=== PATIENT | female | born 1935 | race Caucasian/White ===

== ENCOUNTER 2016-11-12 12:28 | Inpatient (IN) ==
[2016-11-12] MEDS ORDERED: ONDANSETRON 4 MG/2 ML VIAL IV PRN (14:47)
[2016-11-12] MEDS ORDERED: SODIUM CHLORIDE 0.9% 1,000 ML IV SCH (15:00)
[2016-11-12 15:23] LABS: Basophils % 0.1 % (0.0-0.8); Eosinophils # 0.1 10*3/uL (0.0-0.87); Eosinophils % 0.7 % (0.00-10.9); Hematocrit 42.1 VOL% (35.7-47.0); Hemoglobin 13.9 GM/DL (12.0-16.0); Immature Granulocytes % 1.3 %; Lymphocytes # 0.9 10*3/uL (1.4-4.0); Lymphocytes % 11.2 % (21.3-54.2); Mean Corpuscular Hemoglobin 32 PG (27-34); Mean Platelet Volume 11.6 FL (9.6-12.0); Monocytes # 1.1 10*3/uL (0.11-0.8); Monocytes % 14.7 % (1.7-12.7); Neutrophils # 5.5 10*3/uL (1.4-7.4); Platelet Count 150 T/CUMM (130-400); Red Blood Count 4.34 MC/CUMM (3.8-5.5); Red Cell Distribution Width 15.9 % (9.3-17.3); White Blood Count 7.6 T/CUMM (4-12)
[2016-11-12 15:45] LABS: Albumin 3.1 G/DL (3.4-5.0); Bilirubin,Total 0.6 MG/DL (0.2-1.0); Magnesium 1.4 MG/DL (1.8-2.4); Osmolality,Calculated 283.5 MOS/KG (273-304); Potassium 2.8 MMOL/L (3.5-5.1); Total Protein 5.7 G/DL (6.4-8.3)
[2016-11-12 15:51] LABS: Calcium 16.5 MG/DL (8.5-10.1)
[2016-11-12] MEDS ORDERED: DOCUSATE SODIUM 100 MG CAPSULE PO PRN (16:02)
[2016-11-12] MEDS ORDERED: guaiFENesin/DM ER 600-30 MG TABLET PO PRN (16:02)
[2016-11-12] MEDS ORDERED: ACETAMINOPHEN 325 MG TABLET PO PRN ×2 (16:02)
[2016-11-12] MEDS ORDERED: MORPHINE 2 MG/1 ML SYRINGE IV PRN (16:02)
--- NOTE | 2016-11-12 16:20 | Hospitalist History & Physical ---
<Shyanne Soto - Last Filed: 11/12/16 16:07> Assessment and Plan - Time spent with patient Time spent with patient: Greater than 30 minutes (1) Hypercalcemia Status: Acute Assessment and plan: 81-year-old white female transferred from [facility] emergency room with encephalopathy with hypercalcemia and hypokalemia. Dr. Edmonds will see and examine patient and further recommendations to follow. Shortness of breath--obtain chest x-ray. Patient had a recent admission with pneumonia. Her chest sounds clear but will see if this is a pneumonia or a CHF exacerbation. Hypercalcemia/dehydration--patient's calcium level is 17.1. Patient is dehydrated and will start normal saline at 200 mL/h and then adjust to maintain urine output at 100 mL/h. Will hold patient's Lasix for now. We will also consult Dr. Lyon from nephrology to assist since patient has superimposed acute on chronic kidney disease as well as hypokalemia. Can possibly administer calcitonin or bisphosphonate's or glucocorticoids but will leave this up to Dr. Edmonds and Dr. Lyon. Hypokalemia--potassium replacement has been ordered and nephrology has been consulted. Knee pain--patient has p.o. and IV narcotics ordered but at reduced doses due to her altered mental status and kidney function. Stay away from Toradol due to her kidney function. Patient does have rheumatoid arthritis and this could also be due to her hypercalcemia as well. Encephalopathy--UA was negative, blood cultures and chest x-ray are pending. Her ammonia level was normal. CT the head is being loaded into the system so results of this are unknown. Current Visit: Yes (2) Hypokalemia Status: Acute Current Visit: Yes (3) Encephalopathy acute Status: Acute Current Visit: Yes (4) Shortness of breath Status: Acute Current Visit: Yes (5) Knee pain Status: Acute Current Visit: Yes (6) Acute kidney injury superimposed on chronic kidney disease Status: Acute Current Visit: Yes History of Present Illness Chief complaint: Shortness of breath History of present illness: Ms. Villalobos is a 81 year old white female with history of CHF, depression, hypothyroidism, rheumatoid arthritis, pulmonary fibrosis, chronic kidney disease , vitamin D deficiency, macular degeneration, GERD transferred to [facility] from [facility] emergency room with altered mental status, hypercalcemia, and hypokalemia. Patient is admitted to the ICU and she will answer some questions appropriately but confused with 70% of them. Patient states she has been short of breath and she has had a cough and she is complaining of knee pain. Otherwise I cannot get a straight answer from the patient. Her history was taken mostly from the ED paperwork from [facility]. There is no family present to assist. Patient's EKG showing normal sinus rhythm with some PVCs, ammonia level is normal, BMP shows a glucose of 111 , creatinine 1.8, calcium 17.1, potassium 2.6, LFTs are normal. CBC shows WBCs 9.5, H&H 13/42, and platelets 172. A disc with CT scan of the head was sent with patient but no report was given. This is being loaded into the system now. UA done at [facility] is clear with only trace bacteria. INR is 1. According to the ED record patient was recently hospitalized for pneumonia. Upon exam patient is confused and pale in color. She has conversational dyspnea. Her O2 sats are 97% on 4 L nasal cannula, her lungs are clear to auscultation, and her heart is regular rhythm with no murmurs heard, abdomen is soft and nontender, there are no open wounds on the feet or buttocks region. Patient's medicines will be reconciled once completely in the system and patient is a full code. Dr. Edmonds is the admitting hospitalist. Home Medications Medication Instructions Recorded Confirmed Type ALPRAZolam [Xanax] 0.5 mg PO BID PRN 11/12/16 11/12/16 History Acetaminophen Tab [Tylenol Tab] 650 mg PO Q4H PRN 11/12/16 11/12/16 History Acetaminophen Tab [Tylenol Tab] 650 mg PO Q4H PRN 11/12/16 11/12/16 History Albuterol/Ipratropium Neb [Duoneb] 3 ml RESP TX Q4HR PRN 11/12/16 11/12/16 History Amitriptyline [Elavil] 25 mg PO BEDTIME 11/12/16 11/12/16 History Ascorbic Acid [Vitamin C] 500 mg PO BID 11/12/16 11/12/16 History Aspirin [Ecotrin] 325 mg PO DAILY 11/12/16 11/12/16 History Baclofen 10 mg PO BEDTIME 11/12/16 11/12/16 History Calcium (Carb)/Vit D 500-200 1 tablet PO BID 11/12/16 11/12/16 History [Oscal 500 + D] Cetirizine Tab [ZyrTEC Tab] 10 mg PO DAILY PRN 11/12/16 11/12/16 History Cranberry Conc/C/Bacill Coag 424 mg PO DAILY 11/12/16 11/12/16 History [Cranberry Tablet] Denosumab [Prolia] 60 mg SUBCUT ONCE 11/12/16 11/12/16 History Escitalopram Oxalate [Lexapro] 5 mg PO DAILY 11/12/16 11/12/16 History Ferrous Sulfate 325 mg PO DAILY 11/12/16 11/12/16 History Folic Acid Tab 1 mg PO DAILY 11/12/16 11/12/16 History Furosemide Tab [Lasix Tab] 20 mg PO BID DIURETIC 11/12/16 11/12/16 History Glucagon 1 mg IM PRN PRN 11/12/16 11/12/16 History HYDROcodone/ACETAMIN 7.5-325 7.5 mg PO Q6HR 11/12/16 11/12/16 History [[place] 7.5-325] Levofloxacin Tab [Levaquin Tab] 500 mg PO DAILY 11/12/16 11/12/16 History Levothyroxine Tab [Synthroid Tab] 25 mcg PO DAILY 11/12/16 11/12/16 History Levothyroxine Tab [Synthroid Tab] 50 mcg PO DAILY 11/12/16 11/12/16 History Melatonin 10 mg PO BEDTIME 11/12/16 11/12/16 History Mirtazapine [Remeron] 15 mg PO BEDTIME 11/12/16 11/12/16 History Multivitamin [Multivitamins] 1 tablet PO DAILY 11/12/16 11/12/16 History Polyethylene Glycol Powder 17 gm PO QOTHER DAY 11/12/16 11/12/16 History [Miralax] Potassium Chloride Cap/Tab [K Dur] 20 meq PO BID 11/12/16 11/12/16 History Tiotropium Inhalation [Spiriva 18 mcg INH DAILY 11/12/16 11/12/16 History Handihaler] diphenhydrAMINE CAP [Benadryl Cap] 25 mg PO BEDTIME PRN 11/12/16 11/12/16 History guaiFENesin/CODEINE [Robitussin AC] 5 ml PO DAILY 11/12/16 11/12/16 History guaiFENesin/PSEUDOEPH 600-60MG 400 mg PO BID PRN 11/12/16 11/12/16 History [Mucinex D] metHOTREXate sodium [Methotrexate] 25 mg IJ ONCE 11/12/16 11/12/16 History metOLazone [Zaroxolyn] 1.25 mg PO DAILY 11/12/16 11/12/16 History predniSONE TAB [PredniSONE] 10 mg PO DAILY 11/12/16 11/12/16 History predniSONE TAB [PredniSONE] 20 mg PO DAILY 11/12/16 11/12/16 History Allergies Allergy/AdvReac Type Severity Reaction Status Date / Time atorvastatin [From Lipitor] Allergy Unknown Unknown/Unable Verified 11/12/16 16: 12 to obtain morphine Allergy Unknown Unknown/Unable Verified 11/12/16 16:12 to obtain Rthsltu-Qdk-Wtz Reductase Allergy Unknown Unknown/Unable Verified 11/12/16 16:12 Inhibitor to obtain Medical,Surgical,& Family Hx - Medical History Cardio: History of: CHF, Hypertension, Cardiovascular Problems (Cardiomegaly) Psychological: History of: Depression Neurology: History of: Dementia HEENT: History of: Eye Problem (Macular degeneration) Endocrine: History of: Thyroid Disorder (Hypothyroid) Rheumatology: History of;: Rheumatoid Arthritis Respiratory: History of: COPD, Pneumonia, Respiratory Problems (Pulmonary fibrosis) Renal: History of: Renal Problems (CKD) Gastrointestinal: History of: GERD, GI Problems (Constipation) Hematology: History of: Anemia (Vitamin D deficiency) - Surgical History Additional Surgical History: Surgical history is unknown - Family History Additional Family History: Family history is unknown - Social History Smoking Status: Unknown if ever smoked Marital Status: Lives With:: [facility] resident ROS unobtainable: due to encephalopathy Exam - Constitutional Exam: Constitutional System: [Mild] distress. [No] tremulousness. Head: Normocephalic, atraumatic. Ears, Nose and Throat System: No evidence of Otitis or Mastoiditis. No epistaxis or discharge Eyes System: Pupils equal, round, and reactive. Extraocular muscles intact. Neck: Supple, without adenopathy, [No] jugular venous distention. No thyromegaly , neck mass, or prior surgery apparent. Respiratory System: Chest [clear] to auscultation. Cardiovascular System: Heart with [regular] rate and rhythm. [No] murmur. GI System: Abdomen [soft], [non]tender. [Normo]active bowel sounds present. Musculoskeletal System: limbs with [no] pedal edema. Diminished distal pulses. Neurological System: Patient will follow some commands, motor and sensory unobtainable Psychiatric System: Patient is confused Results - Labs CBC & BMP: 11/12/16 15:08 11/12/16 15:08 Lab Results: I have reviewed the past 24 hour labs - EKG EKG results: sinus rhythm - Diagnostic Findings Procedure: Chest x-ray: pending, CT: pending <Ariel Edmonds - Last Filed: 11/12/16 16:48> History of Present Illness History of present illness: Ms. Villalobos is a 81 year old female transferred here from [facility] with altered mental status, hypercalcemia, and hypokalemia. She has recently been hospitalized for pneumonia. I have interviewed the patient as much as possible , examined the patient, and reviewed all the available laboratory test results and x-rays. Agree with the assessment and plans of the nurse practitioner. Nephrology has been consulted. Results - Labs CBC & BMP: 11/12/16 15:08 11/12/16 15:08
--- NOTE | 2016-11-12 16:39 | XRay Report ---
XR chest 1V portable Indication: Altered mental status. Comparison: None. Technique: Portable AP chest was performed. Findings: A very limited inspiration is demonstrated. Bibasilar parenchymal opacities are present with mid and upper lungs remain clear. The heart is not well-visualized but may be minimally enlarged. Bones and soft tissues demonstrate no evidence of acute pathology. Impression: 1. Appearance of the lung bases suggests atelectasis, edema, or infection. Dependent pleural fluid is not excluded. 11/12/2016 4:35 PM PROCEDURE INTERPRETED AT [facility] DEPARTMENT OF RADIOLOGY Final Report Signed by: Dr. Parag Middleton
[2016-11-12] MEDS: METOPROLOL TARTRATE 5 MG/5 ML VIAL IV PRN (16:42)
[2016-11-12] MEDS: POTASSIUM CHLORIDE RIDER 10 MEQ in PREMIX 1 EACH IV PRN ×5 (16:44→21:00)
[2016-11-12] MEDS: PANTOPRAZOLE 40 MG TABLET PO SCH (16:46)
[2016-11-12] MEDS ORDERED: ALBUTEROL/IPRATROPIUM 3 ML NEB RESP TX PRN (16:48)
[2016-11-12] MEDS: SODIUM CHLORIDE 0.9% 1,000 ML IV SCH (16:57)
[2016-11-12] MEDS ORDERED: METOPROLOL TARTRATE 5 MG/5 ML VIAL IV SCH (17:00)
[2016-11-12 17:22] LABS: Apearance,Urine CLEAR (Clear); Bilirubin,Urine Negative (Negative); Blood, Urine Negative (Negative); Glucose,Urine (UA) Negative (Negative); Hyaline Casts,Urine 6 /LPF (0-3); Ketones,Urine 5 mg/dL (Negative); Nitrite,Urine Negative (Negative); Protein,Urine Negative; RBC,Urine 1 /HPF (0-4); Squamous Epithelial Cell,Urine Occasional /HPF (0-10); Urine Color Yellow (Yellow); Urine Specific Gravity 1.011 (1.001-1.035); Urine Urobilinogen < 2.0 EU/DL (0.2-1.0); WBC,Urine 2 /HPF (0-6)
[2016-11-12] MEDS: POLYETHYLENE GLYCOL POWDER 17 GM PACK PO SCH ×2 (17:39→18:24)
[2016-11-12] MEDS: predniSONE 20 MG TABLET PO SCH ×2 (17:39→18:27)
[2016-11-12] MEDS: ASPIRIN EC 325 MG TABLET PO SCH ×2 (17:39→18:24)
[2016-11-12] MEDS: ESCITALOPRAM 10 MG TABLET PO SCH ×2 (17:39→18:25)
--- NOTE | 2016-11-12 18:06 | Nephrology Consult Note ---
History of Present Illness Chief complaint: Pt admitted for hypercalcemia 16.5, hx unobtainable due to mental status History of present illness: Ms. Villalobos is a 81 year old female transferred from [facility] for symptomatic hypercalcemia. 16.5 corrects to 17.2 for albumin. She does not answer questions appropriately. Does not know her maiden name, date of , place or circumstances surrounding her admission. Per chart recently treated for pneumonia. Home Medications Medication Instructions Recorded Confirmed Type ALPRAZolam [Xanax] 0.5 mg PO BID PRN 11/12/16 11/12/16 History Acetaminophen Tab [Tylenol Tab] 650 mg PO Q4H PRN 11/12/16 11/12/16 History Acetaminophen Tab [Tylenol Tab] 650 mg PO Q4H PRN 11/12/16 11/12/16 History Albuterol/Ipratropium Neb [Duoneb] 3 ml RESP TX Q4HR PRN 11/12/16 11/12/16 History Amitriptyline [Elavil] 25 mg PO BEDTIME 11/12/16 11/12/16 History Ascorbic Acid [Vitamin C] 500 mg PO BID 11/12/16 11/12/16 History Aspirin [Ecotrin] 325 mg PO DAILY 11/12/16 11/12/16 History Baclofen 10 mg PO BEDTIME 11/12/16 11/12/16 History Calcium (Carb)/Vit D 500-200 1 tablet PO BID 11/12/16 11/12/16 History [Oscal 500 + D] Cetirizine Tab [ZyrTEC Tab] 10 mg PO DAILY PRN 11/12/16 11/12/16 History Cranberry Conc/C/Bacill Coag 424 mg PO DAILY 11/12/16 11/12/16 History [Cranberry Tablet] Denosumab [Prolia] 60 mg SUBCUT ONCE 11/12/16 11/12/16 History Escitalopram Oxalate [Lexapro] 5 mg PO DAILY 11/12/16 11/12/16 History Ferrous Sulfate 325 mg PO DAILY 11/12/16 11/12/16 History Folic Acid Tab 1 mg PO DAILY 11/12/16 11/12/16 History Furosemide Tab [Lasix Tab] 20 mg PO BID DIURETIC 11/12/16 11/12/16 History Glucagon 1 mg IM PRN PRN 11/12/16 11/12/16 History HYDROcodone/ACETAMIN 7.5-325 7.5 mg PO Q6HR 11/12/16 11/12/16 History [[place] 7.5-325] Levofloxacin Tab [Levaquin Tab] 500 mg PO DAILY 11/12/16 11/12/16 History Levothyroxine Tab [Synthroid Tab] 25 mcg PO SUTUTHSA 11/12/16 11/12/16 History Levothyroxine Tab [Synthroid Tab] 50 mcg PO MOWEFR 11/12/16 11/12/16 History Melatonin 10 mg PO BEDTIME 11/12/16 11/12/16 History Mirtazapine [Remeron] 15 mg PO BEDTIME 11/12/16 11/12/16 History Multivitamin [Multivitamins] 1 tablet PO DAILY 11/12/16 11/12/16 History Polyethylene Glycol Powder 17 gm PO QOTHER DAY 11/12/16 11/12/16 History [Miralax] Potassium Chloride Cap/Tab [K Dur] 20 meq PO BID 11/12/16 11/12/16 History Tiotropium Inhalation [Spiriva 18 mcg INH DAILY 11/12/16 11/12/16 History Handihaler] diphenhydrAMINE CAP [Benadryl Cap] 25 mg PO BEDTIME PRN 11/12/16 11/12/16 History guaiFENesin/CODEINE [Robitussin AC] 5 ml PO DAILY 11/12/16 11/12/16 History guaiFENesin/PSEUDOEPH 600-60MG 400 mg PO BID PRN 11/12/16 11/12/16 History [Mucinex D] metHOTREXate sodium [Methotrexate] 25 mg IJ ONCE 11/12/16 11/12/16 History metOLazone [Zaroxolyn] 1.25 mg PO DAILY 11/12/16 11/12/16 History predniSONE TAB [PredniSONE] 10 mg PO DAILY 11/12/16 11/12/16 History predniSONE TAB [PredniSONE] 20 mg PO DAILY 11/12/16 11/12/16 History Allergies Allergy/AdvReac Type Severity Reaction Status Date / Time atorvastatin [From Lipitor] Allergy Unknown Unknown/Unable Verified 11/12/16 16: 12 to obtain morphine Allergy Unknown Unknown/Unable Verified 11/12/16 16:12 to obtain Vkgfpro-Qgf-Qll Reductase Allergy Unknown Unknown/Unable Verified 11/12/16 16:12 Inhibitor to obtain Medical,Surgical,& Family Hx - Medical History Cardio: History of: CHF, Hypertension, Cardiovascular Problems (Cardiomegaly) Psychological: History of: Depression Neurology: History of: Dementia HEENT: History of: Eye Problem (Macular degeneration) Endocrine: History of: Thyroid Disorder (Hypothyroid) Rheumatology: History of;: Rheumatoid Arthritis Respiratory: History of: COPD, Pneumonia, Respiratory Problems (Pulmonary fibrosis) Renal: History of: Renal Problems (CKD) Gastrointestinal: History of: GERD, GI Problems (Constipation) Hematology: History of: Anemia (Vitamin D deficiency) - Social History Smoking Status: Unknown if ever smoked Exam - Vital Signs Vital signs: Period Temp Pulse Resp BP Sys/Andrews Pulse Ox Last 24 Hr 97.7 F 94 16-16 180/79 99 - General Appearance General appearance: well-developed, chronically ill EENT: ATNC, mucous membranes dry, hearing intact, vision intact (ptosis OD) Neck: no JVD, no thyromegaly Respiratory: no kyphosis, clear Cardiology: no murmurs, no rub, no edema Gastrointestinal: hypoactive bowel sounds, no tenderness Integumentary: no rash, warm and dry Neurologic: no focal deficit, no asterixis, disoriented Musculoskeletal: no deformities, no erythema Psychiatric: depressed, cooperative Results - Labs CBC & BMP: 11/12/16 15:08 11/12/16 15:08 Assessment and Plan (1) Hypercalcemia Problem details: levels this high are almost always due to malignancy. 90% of all hypercalcemia cases are due to primary hyperparathyroidism or malignancy. Status: Acute Assessment and plan: NS IVFs @ 200cc/hr initiated. Calcitonin 4IU/kg subcutaneously now (300u), repeat calcium in ~4hrs to assess for responsiveness to calcitonin. Then may give q12h. This tends to not work after 48hr or so. Zoledronic acid ordered to stablize bone resorption. This could take 2-3 days to kick in. Would monitor closely for volume overload and avoid the use of lasix at this time as its use in hypercalcemia has fallen out of favor. PTH/PTHrp, cortisol, TSH/FT4, SPEP/UPEP/free light chains, vitamin D, vitamin A ordered. High PTHrp would suggest malignancy associated hyperCa. Renal u/s to assess for stones, nephrocalcinosis. Hemodialysis is a treatment of last resort. Primary goal should be to find the suspected malignancy and treat if amenable. Current Visit: Yes (2) CKD (chronic kidney disease) stage 3, GFR 30-59 ml/min Status: Acute Current Visit: Yes (3) Hypokalemia Status: Acute Current Visit: Yes
[2016-11-12] MEDS: HYDROmorphone 2 MG/1 ML VIAL IV PRN (18:21)
[2016-11-12] MEDS ORDERED: ZOLEDRONIC ACID 4 MG in PREMIX 1 EACH IV ONE (18:30)
[2016-11-12] MEDS ORDERED: CALCITONIN 400 UNIT/2 ML VIAL SUBCUT PRN (18:30)
[2016-11-12 18:33] LABS: Free T4 (Free Thyroxine) 1.46 NG/DL (0.76-1.46); Thyroid Stimulating Hormone 1.45 uIU/ml (0.358-3.74)
[2016-11-12 18:37] LABS: Parathyroid Hormone Intact 18.9 PG/ML (14-72)
[2016-11-12] MEDS: IPRATROPIUM 500 MCG/2.5 ML NEB RESP TX SCH (20:34)
[2016-11-12] MEDS: AMITRIPTYLINE 25 MG TABLET PO SCH (22:09)
[2016-11-12] MEDS: MIRTAZAPINE 15 MG TABLET PO SCH (22:10)
[2016-11-12] MEDS: DESITIN 4OZ/NYSTATIN 15 GRAM MIXTURE PASTE TOP SCH (22:14)
[2016-11-12] MEDS: NYSTATIN POWDER 15 GM BOTTLE TOP SCH (22:14)
[2016-11-13] MEDS ORDERED: CALCITONIN 400 UNIT/2 ML VIAL SUBCUT ONE (01:30)
[2016-11-13] MEDS: SODIUM CHLORIDE 0.9% 1,000 ML IV SCH ×8 (02:46→23:25)
[2016-11-13 05:31] LABS: Basophils % 0.2 % (0.0-0.8); Eosinophils % 0.3 % (0.00-10.9); Hematocrit 38.6 VOL% (35.7-47.0); Immature Granulocytes % 1.4 %; Immature Granulocytes Absolute 0.14 #; Lymphocytes % 10.5 % (21.3-54.2); Mean Corpuscular HGB Conc 33.7 GM/DL (32-36); Mean Corpuscular Hemoglobin 32 PG (27-34); Mean Corpuscular Volume 95.5 FL (87-102); Mean Platelet Volume 11.8 FL (9.6-12.0); Monocytes # 1.6 10*3/uL (0.11-0.8); Monocytes % 16.1 % (1.7-12.7); Neutrophils % 71.5 % (38.7-73.9); Platelet Count 162 T/CUMM (130-400); Red Blood Count 4.04 MC/CUMM (3.8-5.5); Red Cell Distribution Width 15.9 % (9.3-17.3); White Blood Count 9.7 T/CUMM (4-12)
[2016-11-13 05:55] LABS: Band Neutrophils 2 % (0-10); Lymphocytes 13 % (20-55); Segmented Neutrophils 75 % (50-85); Total Cells Counted 100
[2016-11-13 05:56] LABS: Hypochromasia 1+; Microcytosis 1+
[2016-11-13 06:00] LABS: Albumin 2.9 G/DL (3.4-5.0); Bilirubin,Total 0.7 MG/DL (0.2-1.0); Magnesium 1.2 MG/DL (1.8-2.4); Osmolality,Calculated 282.5 MOS/KG (273-304); Potassium 3.2 MMOL/L (3.5-5.1); Total Protein 5.4 G/DL (6.4-8.3)
[2016-11-13 06:07] LABS: Calcium 14.6 MG/DL (8.5-10.1)
[2016-11-13] MEDS: IPRATROPIUM 500 MCG/2.5 ML NEB RESP TX SCH ×4 (07:01→19:33)
--- NOTE | 2016-11-13 07:42 | Nephrology Progress Note ---
Nephrology - PN: Subj Interval history: Pt more alert today. Will respond to verbal questions, but does not know her birthdate or maiden name. Calcium down to 14 range. Creatinine 1.4. PTH low rules out primary hyperparathyroidism, vit D 52, high but not high enough to cause this level of hypercalcemia in my opinion. Suspicious for malignancy Exam (PN)-Nephrology - Vital Signs Vital signs: Period Temp Pulse Resp BP Sys/Andrews Pulse Ox Last 24 Hr 97 F-97.7 F 78-94 16-30 101-180/63-128 91-100 - General Appearance General appearance: well-developed, obese EENT: ATNC, PERRL, hearing intact, vision intact Neck: no JVD, no thyromegaly Respiratory: no kyphosis, clear Cardiology: no murmurs, no rub, edema Gastrointestinal: hypoactive bowel sounds, no tenderness Integumentary: no rash, warm and dry Neurologic: no focal deficit, no asterixis, disoriented Musculoskeletal: deformities (ulnar deviation PIPs) Psychiatric: depressed, cooperative - Lab 11/13/16 05:13 11/13/16 05:13 Most recent lab results Calcium 14.6 MG/DL (8.5-10.1) H* 11/13/16 05:13 Magnesium 1.2 MG/DL (1.8-2.4) L 11/13/16 05:13 Assessment and Plan (1) Hypercalcemia Problem details: Improved clinically. Levels this high are almost always due to malignancy. 90% of all hypercalcemia cases are due to primary hyperparathyroidism or malignancy. HPTH essentially ruled out with low PTH. PTHrp pending. Status: Acute Assessment and plan: Continue NS IVFs @ 200cc/hr. Increase Calcitonin to 450 IU subcutaneously now and repeat q6h, repeat calcium in q6hrs Then may give q12h. This tends to not work after 48hr or so. Zoledronic acid given. This could take 2-3 days to kick in. Would monitor closely for volume overload and avoid the use of lasix at this time as its use in hypercalcemia has fallen out of favor. PTH/vitamin D, resulted. PTHrp, cortisol, TSH/FT4, SPEP/UPEP/free light chains, vitamin A ordered and pending. High PTHrp would suggest malignancy associated hyperCa. Renal u/s to assess for stones, nephrocalcinosis. Hemodialysis is a treatment of last resort. Primary goal should be to find the suspected malignancy and treat if amenable. Current Visit: Yes (2) CKD (chronic kidney disease) stage 3, GFR 30-59 ml/min Status: Acute Current Visit: Yes (3) Hypokalemia Status: Acute Current Visit: Yes
[2016-11-13 08:00] LABS: Albumin (SPE) 3.3 G/DL (3.2-5.3); Albumin (SPE) Rel % 59.6 %; Alpha 1 (SPE) 0.2 G/DL (0.1-0.4); Alpha 1 (SPE) Rel % 3.9 %; Alpha 2 (SPE) 0.7 G/DL (0.4-1.0); Alpha 2 (SPE) Rel % 12.3 %; Beta (SPE) 0.7 G/DL (0.5-1.1); Beta (SPE) Rel % 13.7 %; Gamma (SPE) 0.6 G/DL (0.7-1.7); Gamma (SPE) Rel % 10.5 %; Total Protein (Chem) 5.5 G/DL (6.4-8.3)
[2016-11-13 08:17] LABS: Random Urine Protein (Bench) 10 MG/DL (<11.9)
[2016-11-13] MEDS ORDERED: MAGNESIUM SULF RIDER 2 GM in PREMIX 1 EACH IV PRN (08:37)
[2016-11-13] MEDS ORDERED: MAGNESIUM SULF RIDER 4 GM in PREMIX 1 EACH IV PRN (08:37)
--- NOTE | 2016-11-13 08:50 | Ultrasound Report ---
Renal ultrasound Indication: Hypercalcemia, renal cysts dysfunction Comparison: None available Findings: Kidneys are normal in size and echogenicity. No hydronephrosis or nephrolithiasis is seen. The right renal length is 8.1 cm. The left renal length is 8.1 cm. No free fluid or other abnormality is seen. Impression: No evidence of abnormality demonstrated. Ultrasound images stored and captured. PROCEDURE INTERPRETED AT [facility] DEPARTMENT OF RADIOLOGY Final Report Signed by: Dr. Bebo Chambers
[2016-11-13] MEDS: POTASSIUM CHLORIDE RIDER 10 MEQ in PREMIX 1 EACH IV PRN ×7 (09:18→22:52)
--- NOTE | 2016-11-13 09:37 | XRay Report ---
XR chest 1V portable Indication: Enteric tube placement Comparison: No relevant comparison. Technique: Frontal view of the chest and upper abdomen specifically for enteric tube placement. Findings: Weighted enteric tube tip projects over the expected location of the mid stomach. IMPRESSION: As above. PROCEDURE INTERPRETED AT [facility] DEPARTMENT OF RADIOLOGY Final Report Signed by: Dr Lee Jett
[2016-11-13] MEDS: LEVOTHYROXINE 50 MCG TABLET PO SCH (10:18)
[2016-11-13] MEDS: NYSTATIN POWDER 15 GM BOTTLE TOP SCH ×2 (10:18→21:56)
[2016-11-13] MEDS: ESCITALOPRAM 10 MG TABLET PO SCH (10:18)
[2016-11-13] MEDS: predniSONE 10 MG TABLET PO SCH (10:18)
[2016-11-13] MEDS: DESITIN 4OZ/NYSTATIN 15 GRAM MIXTURE PASTE TOP SCH ×2 (10:18→21:56)
[2016-11-13] MEDS: CALCITONIN 400 UNIT/2 ML VIAL SUBCUT SCH ×3 (10:18→21:55)
[2016-11-13] MEDS: PANTOPRAZOLE 40 MG TABLET PO SCH (10:18)
[2016-11-13] MEDS: ASPIRIN EC 325 MG TABLET PO SCH (10:18)
[2016-11-13] MEDS: hydrALAZINE 20 MG/1 ML VIAL IV PRN ×2 (10:19→16:08)
[2016-11-13] MEDS: diphenhydrAMINE CAP 25 MG CAPSULE PO PRN ×2 (10:19→16:08)
[2016-11-13] MEDS: ALPRAZolam 0.5 MG TABLET PO PRN (10:20)
[2016-11-13] MEDS ORDERED: SKIN HEALING OINT (AQUAPHOR) 50 GM TUBE TOP PRN (11:11)
--- NOTE | 2016-11-13 12:25 | Hospitalist Progress Note ---
Assessment and Plan (1) Hypercalcemia Status: Acute Assessment and plan: 1)hypercalcemia- improvingwith hydration and calcitonin, continue. also given zoledronic acid yesterday that should begin to help soon. Creatinine improving, encephalopathy improving. serial Ca++ and K+. replacement protocol for potassium. ok to transfer to floor. 2)HTN- continue meds. 3)shortness of breath- improved. on tapering dose of steroids. Current Visit: Yes (2) Hypokalemia Status: Acute Current Visit: Yes (3) Encephalopathy acute Status: Acute Current Visit: Yes (4) Acute kidney injury superimposed on chronic kidney disease Status: Acute Current Visit: Yes Hospitalist: Subjective Interval history: Mrs Villalobos remains confused but is more alert than yesterday. With calcitonin and hydration her calcium has come down to 14.6, potassium up to 3.2. Her creatinine is now 1.2. Dr Lyon has consulted oncology. SPEP and UPEP looked ok. No family has come to provide any other history. She is on PRolia and calcium supplements at [place]. Exam - Constitutional Vitals: Period Temp Pulse Resp BP Sys/Andrews Pulse Ox Last 24 Hr 97 F-97.7 F 78-100 16-94 101-184/61-128 88-100 General appearance: no acute distress, over weight - Head Head exam: Present: normocephalic, atraumatic - Eye Eye exam: Present: EOMI. Absent: scleral icterus - Respiratory Respiratory exam: Present: clear to auscultation bilaterally - Cardiovascular Cardiovascular exam: Present: regular rate and rhythm - GI/Abdominal GI/Abdominal exam: Present: normal bowel sounds, soft. Absent: tenderness - Extremities Exam Extremities exam: Present: edema (1+ lower extremities) Results - Labs CBC & BMP: 11/13/16 05:13 11/13/16 05:13 Lab Results: I have reviewed the past 24 hour labs
[2016-11-13 18:17] LABS: Magnesium 2.7 MG/DL (1.8-2.4); Potassium 3.4 MMOL/L (3.5-5.1)
[2016-11-13] MEDS: AMITRIPTYLINE 25 MG TABLET PO SCH (21:54)
[2016-11-13] MEDS: MIRTAZAPINE 15 MG TABLET PO SCH (21:55)
[2016-11-14] MEDS: CALCITONIN 400 UNIT/2 ML VIAL SUBCUT SCH ×2 (04:30→19:02)
[2016-11-14] MEDS: SODIUM CHLORIDE 0.9% 1,000 ML IV SCH ×3 (04:30→20:50)
[2016-11-14] MEDS: LEVOTHYROXINE 25 MCG TABLET PO SCH (06:34)
[2016-11-14] MEDS: IPRATROPIUM 500 MCG/2.5 ML NEB RESP TX SCH ×5 (07:16→19:48)
--- NOTE | 2016-11-14 08:13 | Oncology Consult Note ---
Assessment and Plan (1) Hypercalcemia Status: Acute Assessment and plan: This point the etiology is unknown. We are still waiting a few test to return. I was considering ordering CT scans and bone scan today but I will hold off while we await full laboratory workup to see if this guide just. Also, I would prefer to be able to do a CT scan with contrast so I would like to see if her creatinine improves any with IV fluids and further correction of her calcium. Given that she has underlying chronic kidney disease, using IV contrast may not be an option even waiting a day or 2 to order the scan. I will check back in tomorrow to see what further labs show. I would continue with IV fluids for now. Her calcium level should continue to fall now that she has Zometa in her system. Her mental status really has not improved completely. Her calcium level is only at 12 today, which usually does not cause significant confusion. Current Visit: Yes (2) Hypokalemia Status: Acute Current Visit: Yes (3) Encephalopathy acute Status: Acute Current Visit: Yes (4) Acute kidney injury superimposed on chronic kidney disease Status: Acute Current Visit: Yes History of Present Illness History of present illness: Ms. Villalobos is a 81 year old female who presented to the hospital with altered mental status and was found to be hypercalcemic and hypokalemic. The etiology was not known. She does take home calcium and vitamin D and has been receiving Prolia shots for osteoporosis. Initial workup thus far including an SPEP shows no elevation in her gammaglobulins. Free light chains are still pending at this time. Her vitamin D level was normal. Her parathyroid hormone was on the low side of normal. Her peptide related parathyroid hormone is still pending. Her calcium level has responded well to IV fluids and Zometa. Oncology has been consulted to help rule out malignancy as a cause of her hypercalcemia. Home Medications Medication Instructions Recorded Confirmed Type ALPRAZolam [Xanax] 0.5 mg PO BID PRN 11/12/16 11/12/16 History Acetaminophen Tab [Tylenol Tab] 650 mg PO Q4H PRN 11/12/16 11/12/16 History Acetaminophen Tab [Tylenol Tab] 650 mg PO Q4H PRN 11/12/16 11/12/16 History Albuterol/Ipratropium Neb [Duoneb] 3 ml RESP TX Q4HR PRN 11/12/16 11/12/16 History Amitriptyline [Elavil] 25 mg PO BEDTIME 11/12/16 11/12/16 History Ascorbic Acid [Vitamin C] 500 mg PO BID 11/12/16 11/12/16 History Aspirin [Ecotrin] 325 mg PO DAILY 11/12/16 11/12/16 History Baclofen 10 mg PO BEDTIME 11/12/16 11/12/16 History Calcium (Carb)/Vit D 500-200 1 tablet PO BID 11/12/16 11/12/16 History [Oscal 500 + D] Cetirizine Tab [ZyrTEC Tab] 10 mg PO DAILY PRN 11/12/16 11/12/16 History Cranberry Conc/C/Bacill Coag 424 mg PO DAILY 11/12/16 11/12/16 History [Cranberry Tablet] Denosumab [Prolia] 60 mg SUBCUT ONCE 11/12/16 11/12/16 History Escitalopram Oxalate [Lexapro] 5 mg PO DAILY 11/12/16 11/12/16 History Ferrous Sulfate 325 mg PO DAILY 11/12/16 11/12/16 History Folic Acid Tab 1 mg PO DAILY 11/12/16 11/12/16 History Furosemide Tab [Lasix Tab] 20 mg PO BID DIURETIC 11/12/16 11/12/16 History Glucagon 1 mg IM PRN PRN 11/12/16 11/12/16 History HYDROcodone/ACETAMIN 7.5-325 7.5 mg PO Q6HR 11/12/16 11/12/16 History [[place] 7.5-325] Levofloxacin Tab [Levaquin Tab] 500 mg PO DAILY 11/12/16 11/12/16 History Levothyroxine Tab [Synthroid Tab] 25 mcg PO SUTUTHSA 11/12/16 11/12/16 History Levothyroxine Tab [Synthroid Tab] 50 mcg PO MOWEFR 11/12/16 11/12/16 History Melatonin 10 mg PO BEDTIME 11/12/16 11/12/16 History Mirtazapine [Remeron] 15 mg PO BEDTIME 11/12/16 11/12/16 History Multivitamin [Multivitamins] 1 tablet PO DAILY 11/12/16 11/12/16 History Polyethylene Glycol Powder 17 gm PO QOTHER DAY 11/12/16 11/12/16 History [Miralax] Potassium Chloride Cap/Tab [K Dur] 20 meq PO BID 11/12/16 11/12/16 History Tiotropium Inhalation [Spiriva 18 mcg INH DAILY 11/12/16 11/12/16 History Handihaler] diphenhydrAMINE CAP [Benadryl Cap] 25 mg PO BEDTIME PRN 11/12/16 11/12/16 History guaiFENesin/CODEINE [Robitussin AC] 5 ml PO DAILY 11/12/16 11/12/16 History guaiFENesin/PSEUDOEPH 600-60MG 400 mg PO BID PRN 11/12/16 11/12/16 History [Mucinex D] metHOTREXate sodium [Methotrexate] 25 mg IJ ONCE 11/12/16 11/12/16 History metOLazone [Zaroxolyn] 1.25 mg PO DAILY 11/12/16 11/12/16 History predniSONE TAB [PredniSONE] 10 mg PO DAILY 11/12/16 11/12/16 History predniSONE TAB [PredniSONE] 20 mg PO DAILY 11/12/16 11/12/16 History Allergies Allergy/AdvReac Type Severity Reaction Status Date / Time atorvastatin [From Lipitor] Allergy Unknown Unknown/Unable Verified 11/12/16 16: 12 to obtain morphine Allergy Unknown Unknown/Unable Verified 11/12/16 16:12 to obtain [id number]-[id number]-Tec Reductase Allergy Unknown Unknown/Unable Verified 11/12/16 16:12 Inhibitor to obtain Medical,Surgical,& Family Hx - Medical History Cardio: History of: CHF, Hypertension, Cardiovascular Problems (Cardiomegaly) Psychological: History of: Depression Neurology: History of: Dementia HEENT: History of: Eye Problem (Macular degeneration) Endocrine: History of: Thyroid Disorder (Hypothyroid) Rheumatology: History of;: Rheumatoid Arthritis Respiratory: History of: COPD, Pneumonia, Respiratory Problems (Pulmonary fibrosis) Renal: History of: Renal Problems (CKD) Gastrointestinal: History of: GERD, GI Problems (Constipation) Hematology: History of: Anemia (Vitamin D deficiency) - Social History Smoking Status: Unknown if ever smoked ROS unobtainable: due to mental status Exam - Constitutional Vitals: Period Temp Pulse Resp BP Sys/Andrews Pulse Ox Last 24 Hr 96.6 F-98.4 F 94-110 18-38 124-184/54-114 88-100 General appearance: normal weight, no acute distress - Head Head Exam: Present: normocephalic, atraumatic - Eye Eye Exam: Present: EOMI Pupils: Present: PERRL - ENT ENT exam: Present: normal exam, normal oropharynx - Neck Neck exam: Absent: lymphadenopathy, thyromegaly - Respiratory Respiratory exam: Present: CTAB. Absent: wheezes - Cardiovascular Cardiovascular exam: Present: RRR. Absent: JVD - GI/Abdominal GI/Abdominal exam: Present: soft. Absent: ascites, distended, mass - Neurological Exam Neurological exam: Present: alert, oriented X3 - Psychiatric Psychiatric exam: Present: normal affect, normal mood - Skin Skin exam: Present: warm, dry Results - Labs CBC & BMP: 11/13/16 05:13 11/13/16 17:40 Lab Results: I have reviewed the past 24 hour labs
[2016-11-14] MEDS: ESCITALOPRAM 10 MG TABLET PO SCH (09:37)
[2016-11-14] MEDS: ASPIRIN EC 325 MG TABLET PO SCH (09:37)
[2016-11-14] MEDS: predniSONE 10 MG TABLET PO SCH (09:38)
[2016-11-14] MEDS: PANTOPRAZOLE 40 MG TABLET PO SCH (09:38)
[2016-11-14] MEDS: NYSTATIN POWDER 15 GM BOTTLE TOP SCH ×2 (09:38→20:48)
[2016-11-14] MEDS: POLYETHYLENE GLYCOL POWDER 17 GM PACK PO SCH (09:39)
--- NOTE | 2016-11-14 10:02 | Nephrology Progress Note ---
Nephrology - PN: Subj Interval history: PT much more alert today. Knows her date and name, does not know where she is. She c/o pain in her chest. Denies SOB. Exam (PN)-Nephrology - Vital Signs Vital signs: Period Temp Pulse Resp BP Sys/Andrews Pulse Ox Last 24 Hr 96.6 F-98.4 F 97-110 18-38 124-169/54-79 88-100 - General Appearance General appearance: well-developed, chronically ill EENT: ATNC, PERRL, mucous membranes dry, hearing intact, vision intact Neck: no JVD, no thyromegaly Respiratory: no kyphosis, clear Cardiology: no murmurs, no rub Gastrointestinal: normoactive bowel sounds, no tenderness Integumentary: no rash, warm and dry Neurologic: no focal deficit, disoriented Musculoskeletal: no deformities, no erythema Psychiatric: depressed, cooperative - Lab 11/13/16 05:13 11/13/16 17:40 Most recent lab results Calcium 12.0 MG/DL (8.5-10.1) H 11/14/16 06:48 Magnesium 2.7 MG/DL (1.8-2.4) H 11/13/16 17:40 Assessment and Plan (1) Hypercalcemia Problem details: Improved to 12 today. Mental status improved. Status: Acute Assessment and plan: Would monitor closely for volume overload. PTHrp, free light chains, vitamin A ordered and pending. High PTHrp would suggest malignancy associated hyperCa. Renal u/s to assess for stones, nephrocalcinosis. Hemodialysis not indicated. Primary goal should be to find the suspected malignancy and treat if amenable. Current Visit: Yes (2) CKD (chronic kidney disease) stage 3, GFR 30-59 ml/min Problem details: eGFR 36cc/min with creatinine 1.4. Would treat with TYREE prophylaxis if IV contrast used to screen for malignancy. Misoprostol 200mcg po qid starting the day before contrast and ccontinuing for one day after. Mucomyst 1200mg po bid starting the day before contrast and continuing for one day post contrast. Continue volume resuscitation. Status: Acute Current Visit: Yes (3) Hypokalemia Status: Acute Current Visit: Yes
--- NOTE | 2016-11-14 10:52 | Hospitalist Progress Note ---
Assessment and Plan (1) Hypercalcemia Problem details: Improved to 12 today. Mental status improved. Status: Acute Assessment and plan: Her calcium is decreased to 12.0. She is presently being evaluated by oncology for an occult malignancy as the cause of her hypercalcemia. Current Visit: Yes (2) Hypokalemia Status: Acute Assessment and plan: Her potassium today is 3.4. She continues to receive potassium chloride supplementation. Current Visit: Yes (3) Encephalopathy acute Status: Acute Assessment and plan: There appears to be no significant change. Current Visit: Yes (4) Acute kidney injury superimposed on chronic kidney disease Status: Acute Assessment and plan: Her BUN and creatinine are 29 and 1.40 respectively. Current Visit: Yes Hospitalist: Subjective Interval history: Patient remains confused. She has been seen in consultation by Dr. Richardson of oncology. Her calcium today is 12.0 and potassium 3.4. She continues to receive potassium chloride supplementation. She is undergoing evaluation by oncology for an occult malignancy. Exam - Constitutional Vitals: Period Temp Pulse Resp BP Sys/Andrews Pulse Ox Last 24 Hr 96.6 F-98.4 F 97-110 18-38 124-169/54-86 90-100 General appearance: no acute distress - Head Head exam: Present: normal inspection - Neck Neck exam: Present: normal inspection - Respiratory Respiratory exam: Present: clear to auscultation bilaterally - Cardiovascular Cardiovascular exam: Present: regular rate and rhythm - GI/Abdominal GI/Abdominal exam: Present: normal bowel sounds, soft, other (Nontender with no palpable masses or hepatosplenomegaly.) - Extremities Exam Extremities exam: Present: normal inspection - Neurological Exam Neurological exam: Present: other (She appears to be confused and disoriented.) - Skin Skin exam: Present: normal color, warm, intact Results - Labs CBC & BMP: 11/13/16 05:13 11/13/16 17:40
[2016-11-14 11:08] LABS: Immuno Free Light Chain Kappa 3.08 MG/DL (0.33-1.94); Immuno Free Light Chain Lambda 2.37 MG/DL (0.57-2.63)
[2016-11-14] MEDS: DESITIN 4OZ/NYSTATIN 15 GRAM MIXTURE PASTE TOP SCH ×2 (11:38→20:51)
--- NOTE | 2016-11-14 19:02 | XRay Report ---
XR chest 1V portable Indication: K fed placement. Comparison: Chest x-ray 11/13/2016. Technique: Portable AP chest was performed. Findings: CAD. Projects within the upper abdomen the tip appears to lie along the greater curvature of the stomach. The tip likely lies near the mid gastric antrum. The lung parenchyma bilaterally demonstrates stranding in the lung bases and airspace opacification also present bilaterally within the lung bases. Upper lungs are clear. Bones and soft tissues are stable. Impression: 1. Weighted feeding tube placement as detailed. 2. Parenchymal abnormality demonstrated bilaterally may reflect infection or atelectasis. Little change in the lung parenchyma is suggested. 11/14/2016 6:58 PM PROCEDURE INTERPRETED AT [facility] ([facility] DEPARTMENT OF RADIOLOGY Final Report Signed by: Dr. Parag Middleton
[2016-11-14] MEDS: AMITRIPTYLINE 25 MG TABLET PO SCH (20:47)
[2016-11-14] MEDS: MIRTAZAPINE 15 MG TABLET PO SCH (20:47)
[2016-11-15 01:02] LABS: Basophils % 0.2 % (0.0-0.8); Eosinophils % 0.2 % (0.00-10.9); Hematocrit 33.8 VOL% (35.7-47.0); Hemoglobin 11.4 GM/DL (12.0-16.0); Immature Granulocytes % 2.1 %; Immature Granulocytes Absolute 0.29 #; Lymphocytes # 1.3 10*3/uL (1.4-4.0); Lymphocytes % 9.1 % (21.3-54.2); Mean Corpuscular HGB Conc 33.7 GM/DL (32-36); Mean Corpuscular Hemoglobin 32 PG (27-34); Mean Platelet Volume 12.1 FL (9.6-12.0); Monocytes # 1.2 10*3/uL (0.11-0.8); Monocytes % 8.7 % (1.7-12.7); Neutrophils # 10.9 10*3/uL (1.4-7.4); Neutrophils % 79.7 % (38.7-73.9); Platelet Count 175 T/CUMM (130-400); Red Blood Count 3.52 MC/CUMM (3.8-5.5); White Blood Count 13.7 T/CUMM (4-12)
[2016-11-15] MEDS: METOPROLOL TARTRATE 5 MG/5 ML VIAL IV PRN (01:16)
[2016-11-15 01:43] LABS: Albumin 2.7 G/DL (3.4-5.0); Bilirubin,Total 0.5 MG/DL (0.2-1.0); Calcium 10.9 MG/DL (8.5-10.1); Osmolality,Calculated 288.1 MOS/KG (273-304); Potassium 3.2 MMOL/L (3.5-5.1)
[2016-11-15] MEDS: SODIUM CHLORIDE 0.9% 1,000 ML IV SCH ×2 (03:15→21:20)
[2016-11-15] MEDS: ALPRAZolam 0.5 MG TABLET PO PRN (03:21)
[2016-11-15] MEDS: LEVOTHYROXINE 50 MCG TABLET PO SCH (06:20)
[2016-11-15] MEDS: IPRATROPIUM 500 MCG/2.5 ML NEB RESP TX SCH ×4 (07:43→21:15)
--- NOTE | 2016-11-15 08:17 | Oncology Progress Note ---
Assessment and Plan (1) Hypokalemia Status: Acute Current Visit: Yes (2) Encephalopathy acute Status: Acute Current Visit: Yes (3) Acute kidney injury superimposed on chronic kidney disease Status: Acute Current Visit: Yes (4) Hypercalcemia Status: Acute Current Visit: Yes Oncology Subjective PN Interval history: Ms. Richter is a little more alert today but is still quite confused. She was unable to tell me that she was in the hospital and also had difficulty understanding her. Her calcium level now is just above 10 which should not be contributing to her confusion. I think further workup for confusion should be done but I am unsure what her baseline mental status is. We should consider repeat head imaging here. I am unsure if she would be compliant with an MRI but that would be the best look at her brain. A neurology consult should also be considered. I will defer these decisions to her primary team. For her hypercalcemia, I will order a noncontrasted CT scan to evaluate for any evidence of malignancy. I will hold off on ordering a bone scan at this time. We are still waiting for her PTH related peptide to return. If this is elevated this would definitely point toward an underlying malignancy particularly a squamous cell carcinoma of the lung. Exam - Constitutional Vitals: Period Temp Pulse Resp BP Sys/Andrews Pulse Ox Last 24 Hr 97.3 F-98.9 F 88-118 20-26 143-188/69-90 90-98 General appearance: normal weight, no acute distress - Head Head Exam: Present: normocephalic, atraumatic - Eye Eye Exam: Present: EOMI Pupils: Present: PERRL - ENT ENT exam: Present: normal exam, normal oropharynx - Neck Neck exam: Absent: lymphadenopathy, thyromegaly - Respiratory Respiratory exam: Present: CTAB. Absent: wheezes - Cardiovascular Cardiovascular exam: Present: RRR. Absent: JVD, tachycardia - GI/Abdominal GI/Abdominal exam: Present: soft. Absent: ascites, distended, mass - Neurological Exam Neurological exam: Present: altered - Psychiatric Psychiatric exam: Present: agitated - Skin Skin exam: Present: warm, dry Results - Labs CBC & BMP: 11/15/16 00:31 11/15/16 00:31 Lab Results: I have reviewed the past 24 hour labs
[2016-11-15] MEDS: CALCITONIN 400 UNIT/2 ML VIAL SUBCUT SCH (09:29)
[2016-11-15] MEDS: predniSONE 10 MG TABLET PO SCH (10:09)
[2016-11-15] MEDS: PANTOPRAZOLE 40 MG TABLET PO SCH (10:10)
[2016-11-15] MEDS: ASPIRIN EC 325 MG TABLET PO SCH (10:10)
[2016-11-15] MEDS: ESCITALOPRAM 10 MG TABLET PO SCH (10:11)
--- NOTE | 2016-11-15 12:10 | Nephrology Progress Note ---
Nephrology - PN: Subj Interval history: Pt responds to name. Denies SOB/pain. Calcium down to 10. Creatinine 1.3. Ct chest/abd/pelvis this am reviewed. Official read/report pending. PTHrp pending. SPEP/UPEP/FLC unremarkable. Exam (PN)-Nephrology - Vital Signs Vital signs: Period Temp Pulse Resp BP Sys/Andrews Pulse Ox Last 24 Hr 97.3 F-98.9 F 88-119 18-26 143-185/69-90 90-99 - General Appearance General appearance: well-developed, chronically ill EENT: ATNC, PERRL, mucous membranes dry, hearing intact, vision intact Neck: no JVD, no thyromegaly Respiratory: no kyphosis, clear Cardiology: no murmurs, no rub Gastrointestinal: normoactive bowel sounds, hypoactive bowel sounds, no tenderness Integumentary: no rash, warm and dry Neurologic: no focal deficit, no asterixis, disoriented Musculoskeletal: no deformities, no erythema Psychiatric: depressed, cooperative - Lab 11/15/16 00:31 11/15/16 00:31 Most recent lab results Calcium 10.6 MG/DL (8.5-10.1) H 11/15/16 05:43 Magnesium 2.7 MG/DL (1.8-2.4) H 11/13/16 17:40 Assessment and Plan (1) Hypercalcemia Problem details: Improved to 10 today. Mental status improved, but not normal. Status: Deleted Assessment and plan: Would monitor closely for volume overload. PTHrp pending. High PTHrp would suggest malignancy associated hyperCa. Renal u/s to assess for stones, nephrocalcinosis. Hemodialysis not indicated. Primary goal should be to find the suspected malignancy and treat if amenable. Current Visit: Yes (2) CKD (chronic kidney disease) stage 3, GFR 30-59 ml/min Problem details: eGFR 40cc/min with creatinine 1.3. Status: Acute Current Visit: Yes (3) Hypokalemia Status: Acute Current Visit: Yes
--- NOTE | 2016-11-15 13:43 | CT Report ---
History: Hypercalcemia Date: 11/15/2016 Study: CT chest, abdomen, and pelvis without contrast Comparison exam: CT chest with contrast August 17, 2012 Technique: Spiral CT sections were obtained from the lung apices to the pubic symphysis without contrast. CT Chest: A feeding tube is positioned with its tip in the proximal stomach. There is no thoracic aortic aneurysm or dissection. There is prominent coronary artery calcification involving the left main, left anterior descending, and left circumflex coronary arteries. There is no mediastinal lymphadenopathy by short axis diameter criteria. There is no axillary lymphadenopathy. There is mild right-sided pleural effusion. There is some atelectatic parenchymal consolidation in the right lower lobe more so than the left lower lobe with atelectatic changes in the lingula as well. T6 and T11 compression fractures are present. CT abdomen: There is prominent elevation of the right hemidiaphragm related to diaphragmatic eventration with small areas of focal diaphragmatic hernia formation as well. The dome of the right hemidiaphragm is elevated to the level of the miguel a. There is also large hiatal hernia extending into the left hemidiaphragm with the majority of the stomach superior to the level of the diaphragm. The spleen, liver, gallbladder, bile ducts, and adrenal glands are generally unremarkable. There is moderate diffuse fatty infiltration of the pancreas. There is no renal mass. There is no radiopaque renal or ureteral stone. There is no bowel obstruction. The appendix is normal. There is diverticulosis without amadeo diverticulitis. There is no lymphadenopathy in the abdomen. There is no aneurysm of the mildly calcified abdominal aorta. CT pelvis: There is large amount of stool in the rectum compatible with fecal impaction. A Diamond catheter is positioned with its tip in the lumen of the urinary bladder. The uterus is surgically absent. 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 Impression: Within the chest, there is nonspecific atelectatic parenchymal consolidation in the lung bases, right more than left. There is no pulmonary mass or mediastinal mass to specifically suggest malignancy. T6 and T11 compression fractures of uncertain chronicity are noted. There is prominent coronary artery calcification. 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 There is a large hiatal and left diaphragmatic hernia containing the majority of stomach. There is no abdominal mass suspicious for malignancy. There is diverticulosis without amadeo diverticulitis PROCEDURE INTERPRETED AT [facility] DEPARTMENT OF RADIOLOGY Final Report Signed by: Dr. Ragini Santizo
--- NOTE | 2016-11-15 14:01 | Hospitalist Progress Note ---
Assessment and Plan (1) Hypercalcemia Problem details: Improved to 10 today. Mental status improved, but not normal. Status: Deleted Assessment and plan: Her calcium is decreased to 10.0. She is presently being evaluated by oncology for an occult malignancy as the cause of her hypercalcemia. Current Visit: Yes (2) Hypokalemia Status: Acute Assessment and plan: Her potassium today is 3.2. She continues to receive potassium chloride supplementation. Current Visit: Yes (3) Encephalopathy acute Status: Acute Assessment and plan: There appears to be no significant change. Current Visit: Yes (4) Acute kidney injury superimposed on chronic kidney disease Status: Acute Assessment and plan: Her BUN and creatinine are 31and 1.30 respectively. Current Visit: Yes Hospitalist: Subjective Interval history: There been no significant events since yesterday. She appears comfortable. She continues malignancy evaluation by oncology. She underwent a CT scan of the chest, abdomen, and pelvis not demonstrating evidence of malignancy. Exam - Constitutional Vitals: Period Temp Pulse Resp BP Sys/Andrews Pulse Ox Last 24 Hr 97.3 F-98.9 F 88-119 18-24 143-185/69-90 90-99 General appearance: no acute distress - Head Head exam: Present: normal inspection - Neck Neck exam: Present: normal inspection - Respiratory Respiratory exam: Present: other (Decreased bilateral breath sounds.) - Cardiovascular Cardiovascular exam: Present: regular rate and rhythm - GI/Abdominal GI/Abdominal exam: Present: normal bowel sounds, soft, other (Nontender with no palpable masses or hepatosplenomegaly.) - Extremities Exam Extremities exam: Present: normal inspection - Neurological Exam Neurological exam: Present: other (Responsive to pain, but not conversation.) - Skin Skin exam: Present: normal color, warm, intact Results - Labs CBC & BMP: 11/15/16 00:31 11/15/16 00:31
[2016-11-15] MEDS: POTASSIUM CHLORIDE RIDER 10 MEQ in PREMIX 1 EACH IV PRN ×4 (14:08→17:38)
[2016-11-15] MEDS: NYSTATIN POWDER 15 GM BOTTLE TOP SCH ×2 (16:43→21:26)
[2016-11-15] MEDS: DESITIN 4OZ/NYSTATIN 15 GRAM MIXTURE PASTE TOP SCH ×2 (16:43→21:26)
[2016-11-15] MEDS: MIRTAZAPINE 15 MG TABLET PO SCH (21:26)
[2016-11-15] MEDS: AMITRIPTYLINE 25 MG TABLET PO SCH (21:26)
[2016-11-16] MEDS: HYDROmorphone 2 MG/1 ML VIAL IV PRN ×2 (00:11→12:02)
[2016-11-16] MEDS: SODIUM CHLORIDE 0.9% 1,000 ML IV SCH ×4 (01:22→18:40)
[2016-11-16 03:47] LABS: Osmolality,Calculated 284.1 MOS/KG (273-304); Potassium 3.4 MMOL/L (3.5-5.1)
[2016-11-16] MEDS: LEVOTHYROXINE 25 MCG TABLET PO SCH ×2 (06:31→09:10)
[2016-11-16] MEDS: IPRATROPIUM 500 MCG/2.5 ML NEB RESP TX SCH ×4 (08:15→18:56)
[2016-11-16] MEDS: ASPIRIN EC 325 MG TABLET PO SCH (09:09)
[2016-11-16] MEDS: PANTOPRAZOLE 40 MG TABLET PO SCH (09:10)
[2016-11-16] MEDS: POLYETHYLENE GLYCOL POWDER 17 GM PACK PO SCH (09:12)
[2016-11-16] MEDS: NYSTATIN POWDER 15 GM BOTTLE TOP SCH ×2 (09:15→20:08)
[2016-11-16] MEDS: DESITIN 4OZ/NYSTATIN 15 GRAM MIXTURE PASTE TOP SCH ×2 (09:15→20:08)
[2016-11-16] MEDS: ESCITALOPRAM 10 MG TABLET PO SCH (09:17)
--- NOTE | 2016-11-16 11:13 | Hospitalist Progress Note ---
Assessment and Plan (1) Hypercalcemia Problem details: Improved to 10 today. Mental status improved, but not normal. Status: Deleted Assessment and plan: Her calcium is decreased to 9.0. She is presently being evaluated by oncology for an occult malignancy as the cause of her hypercalcemia. There is so far been no malignancy detected by CT scanning. Current Visit: Yes (2) Hypokalemia Status: Acute Assessment and plan: Her potassium today is 3.5. She continues to receive potassium chloride supplementation as needed. Current Visit: Yes (3) Encephalopathy acute Status: Acute Assessment and plan: There appears to be no significant change. He most likely has underlying severe dementia with a superimposed encephalopathy due to her acute illness and hospitalization. Current Visit: Yes (4) Acute kidney injury superimposed on chronic kidney disease Status: Acute Assessment and plan: Her BUN and creatinine are 24 and 1.10 respectively. Current Visit: Yes Hospitalist: Subjective Interval history: She appears unchanged. There were no significant overnight events. Her calcium is 9.[address] scans of the lung, abdomen, and pelvis did not reveal evidence of malignancy. [facility]. Exam - Constitutional Vitals: Period Temp Pulse Resp BP Sys/Andrews Pulse Ox Last 24 Hr 96.7 F-98.9 F 98-116 18-22 123-183/67-87 90-99 General appearance: no acute distress - Head Head exam: Present: normal inspection - Neck Neck exam: Present: normal inspection - Respiratory Respiratory exam: Present: clear to auscultation bilaterally - Cardiovascular Cardiovascular exam: Present: regular rate and rhythm - GI/Abdominal GI/Abdominal exam: Present: normal bowel sounds, soft, other (Nontender with no palpable masses or hepatosplenomegaly.) - Extremities Exam Extremities exam: Present: normal inspection - Neurological Exam Neurological exam: Present: other (Confused) - Skin Skin exam: Present: normal color, warm, intact Results - Labs CBC & BMP: 11/15/16 00:31 11/16/16 02:15
[2016-11-16] MEDS: POTASSIUM CHLORIDE RIDER 10 MEQ in PREMIX 1 EACH IV PRN ×3 (11:58→18:41)
--- NOTE | 2016-11-16 13:25 | Nephrology Progress Note ---
Nephrology - PN: Subj Interval history: Patient is laying in bed resting. Does require soft restraints at this time. Serum calcium now down to 9. Creatinine is 1.1. Exam (PN)-Nephrology - Vital Signs Vital signs: Period Temp Pulse Resp BP Sys/Andrews Pulse Ox Last 24 Hr 96.7 F-98.9 F 98-118 18-22 123-183/67-87 90-99 - General Appearance General appearance: well-developed, well-nourished, frail EENT: ATNC Neck: supple Respiratory: clear Cardiology: no edema, regular rate, regular rhythm Gastrointestinal: normoactive bowel sounds, no tenderness, no guarding Musculoskeletal: no clubbing Psychiatric: agitated - Lab 11/15/16 00:31 11/16/16 02:15 Most recent lab results Calcium 9.0 MG/DL (8.5-10.1) 11/16/16 02:15 Magnesium 2.7 MG/DL (1.8-2.4) H 11/13/16 17:40 Assessment and Plan (1) Hypokalemia Status: Acute Assessment and plan: Is improving. Potassium is 3.4. Current Visit: Yes (2) Acute kidney injury superimposed on chronic kidney disease Status: Resolved Assessment and plan: This issue is resolved. Creatinine is 1.1. Current Visit: Yes (3) Hypercalcemia Status: Resolved Assessment and plan: This issue has resolved. Calcium is 9. Current Visit: Yes
[2016-11-16] MEDS: ALPRAZolam 0.5 MG TABLET PO PRN (15:38)
[2016-11-16] MEDS ORDERED: ZIPRASIDONE 20 MG/1 ML VIAL IM PRN (16:37)
[2016-11-16] MEDS: AMITRIPTYLINE 25 MG TABLET PO SCH (20:08)
[2016-11-16] MEDS: MIRTAZAPINE 15 MG TABLET PO SCH (20:08)
[2016-11-16] MEDS: hydrALAZINE 20 MG/1 ML VIAL IV PRN (20:42)
[2016-11-17 02:14] LABS: Basophils # 0.1 10*3/uL (0.0-0.2); Basophils % 0.3 % (0.0-0.8); Eosinophils # 0.2 10*3/uL (0.0-0.87); Eosinophils % 0.9 % (0.00-10.9); Hematocrit 33.7 VOL% (35.7-47.0); Hemoglobin 11.3 GM/DL (12.0-16.0); Immature Granulocytes % 3.7 %; Immature Granulocytes Absolute 0.59 #; Lymphocytes # 1.8 10*3/uL (1.4-4.0); Lymphocytes % 11.4 % (21.3-54.2); Mean Corpuscular HGB Conc 33.5 GM/DL (32-36); Mean Corpuscular Hemoglobin 32 PG (27-34); Mean Corpuscular Volume 95.5 FL (87-102); Mean Platelet Volume 11.7 FL (9.6-12.0); Monocytes # 1.5 10*3/uL (0.11-0.8); Monocytes % 9.2 % (1.7-12.7); Neutrophils # 11.9 10*3/uL (1.4-7.4); Neutrophils % 74.5 % (38.7-73.9); Platelet Count 197 T/CUMM (130-400); Red Blood Count 3.53 MC/CUMM (3.8-5.5); Red Cell Distribution Width 16.8 % (9.3-17.3); White Blood Count 15.9 T/CUMM (4-12)
[2016-11-17 03:03] LABS: Albumin 2.5 G/DL (3.4-5.0); Bilirubin,Total 0.5 MG/DL (0.2-1.0); Calcium 8.1 MG/DL (8.5-10.1); Osmolality,Calculated 286.8 MOS/KG (273-304); Potassium 3.1 MMOL/L (3.5-5.1); Total Protein 4.8 G/DL (6.4-8.3)
[2016-11-17 03:28] LABS: Band Neutrophils 2 % (0-10); Eosinophils 1 % (0-10); Lymphocytes 6 % (20-55); Myelocytes 1 %; Total Cells Counted 100
[2016-11-17 03:31] LABS: Platelet Estimate Normal
[2016-11-17 03:32] LABS: Anisocytosis 1+; Microcytosis Slight; Segmented Neutrophils 82 % (50-85)
[2016-11-17] MEDS: LEVOTHYROXINE 25 MCG TABLET PO SCH (06:47)
[2016-11-17] MEDS: IPRATROPIUM 500 MCG/2.5 ML NEB RESP TX SCH ×4 (07:36→19:18)
[2016-11-17] MEDS: PANTOPRAZOLE 40 MG TABLET PO SCH (09:05)
[2016-11-17] MEDS: ESCITALOPRAM 10 MG TABLET PO SCH (09:05)
[2016-11-17] MEDS: ASPIRIN EC 325 MG TABLET PO SCH (09:06)
[2016-11-17] MEDS: NYSTATIN POWDER 15 GM BOTTLE TOP SCH ×2 (09:07→20:24)
[2016-11-17] MEDS: SODIUM CHLORIDE 0.9% 1,000 ML IV SCH (09:07)
[2016-11-17] MEDS: DESITIN 4OZ/NYSTATIN 15 GRAM MIXTURE PASTE TOP SCH ×2 (09:08→20:25)
--- NOTE | 2016-11-17 11:29 | Hospitalist Progress Note ---
Assessment and Plan (1) Hypercalcemia Problem details: Improved to 10 today. Mental status improved, but not normal. Status: Deleted Assessment and plan: Her calcium is decreased to 9.0. She is presently being evaluated by oncology for an occult malignancy as the cause of her hypercalcemia. There is so far been no malignancy detected by CT scanning. Current Visit: Yes (2) Hypokalemia Status: Acute Assessment and plan: Her potassium today is 3.5. She continues to receive potassium chloride supplementation as needed. Current Visit: Yes (3) Encephalopathy acute Status: Acute Assessment and plan: There appears to be no significant change. He most likely has underlying severe dementia with a superimposed encephalopathy due to her acute illness and hospitalization. Current Visit: Yes (4) Acute kidney injury superimposed on chronic kidney disease Status: Resolved Assessment and plan: Her BUN and creatinine are 24 and 1.10 respectively. Current Visit: Yes Hospitalist: Subjective Interval history: There were no significant events overnight. She is clinically unchanged. CT scans of the chest, abdomen, and pelvis did not demonstrate evidence of malignancy. She will be discharged back to the [facility] tomorrow morning. Exam - Constitutional Vitals: Period Temp Pulse Resp BP Sys/Andrews Pulse Ox Last 24 Hr 97.4 F-98.7 F 105-120 16-24 133-174/65-81 90-98 General appearance: no acute distress - Head Head exam: Present: normal inspection - Neck Neck exam: Present: normal inspection - Respiratory Respiratory exam: Present: clear to auscultation bilaterally - Cardiovascular Cardiovascular exam: Present: regular rate and rhythm - GI/Abdominal GI/Abdominal exam: Present: normal bowel sounds, soft - Extremities Exam Extremities exam: Present: normal inspection - Neurological Exam Neurological exam: Present: other (Confused and disoriented.) - Skin Skin exam: Present: normal color, warm, intact Results - Labs CBC & BMP: 11/17/16 01:45 11/17/16 01:45
[2016-11-17] MEDS: POTASSIUM CHLORIDE RIDER 10 MEQ in PREMIX 1 EACH IV PRN ×3 (13:08→15:24)
--- NOTE | 2016-11-17 14:35 | Nephrology Progress Note ---
Nephrology - PN: Subj Interval history: Patient is laying in bed resting. Does require soft restraints at this time. Serum calcium now down to 9. Creatinine is 1.1. 11/17/2016. The patient is resting comfortably. Renal function stable. Serum calcium continues to improve 8.1. No other acute changes at this time. We will stop IV fluids at this time. Exam (PN)-Nephrology - Vital Signs Vital signs: Period Temp Pulse Resp BP Sys/Andrews Pulse Ox Last 24 Hr 97.4 F-98.7 F 105-121 16-24 133-174/65-81 90-97 - General Appearance General appearance: well-developed, well-nourished EENT: ATNC Neck: supple Respiratory: clear (Patient now take deep breaths) Cardiology: regular rate, regular rhythm Gastrointestinal: normoactive bowel sounds Neurologic: alert and oriented x3 Musculoskeletal: no clubbing Psychiatric: mood/affect appropriate - Lab 11/17/16 01:45 11/17/16 01:45 Most recent lab results Calcium 8.1 MG/DL (8.5-10.1) L 11/17/16 01:45 Magnesium 2.7 MG/DL (1.8-2.4) H 11/13/16 17:40 Assessment and Plan (1) Hypokalemia Status: Acute Assessment and plan: Is improving. Continue to supplement potassium. Current Visit: Yes (2) Acute kidney injury superimposed on chronic kidney disease Status: Resolved Assessment and plan: This issue is resolved. Creatinine is 1.1. Current Visit: Yes (3) Hypercalcemia Status: Resolved Assessment and plan: This issue has resolved. Calcium is 9. Current Visit: Yes
[2016-11-17] MEDS ORDERED: FUROSEMIDE 40 MG/4 ML VIAL IV ONE (14:59)
[2016-11-17] MEDS: AMITRIPTYLINE 25 MG TABLET PO SCH (20:23)
[2016-11-17] MEDS: MIRTAZAPINE 15 MG TABLET PO SCH (20:23)
[2016-11-17] MEDS: POTASSIUM CHLORIDE 20 MEQ TABLET PO SCH (20:24)
[2016-11-18 05:29] LABS: Calcium 7.9 MG/DL (8.5-10.1); Osmolality,Calculated 281.1 MOS/KG (273-304); Potassium 3.5 MMOL/L (3.5-5.1)
[2016-11-18] MEDS: LEVOTHYROXINE 50 MCG TABLET PO SCH (06:31)
[2016-11-18] MEDS: SODIUM CHLORIDE 0.9% 1,000 ML IV SCH (07:07)
[2016-11-18] MEDS: IPRATROPIUM 500 MCG/2.5 ML NEB RESP TX SCH ×2 (07:15→11:07)
--- NOTE | 2016-11-18 07:38 | Oncology Progress Note ---
Assessment and Plan (1) Hypokalemia Status: Acute Current Visit: Yes (2) Encephalopathy acute Status: Acute Current Visit: Yes (3) Acute kidney injury superimposed on chronic kidney disease Status: Resolved Current Visit: Yes (4) Hypercalcemia Status: Resolved Current Visit: Yes Oncology Subjective PN Interval history: Ms. Morton now has a normal calcium level. Her CT scan did not reveal any evidence of malignancy. She is still severely demented at baseline and it is been reported to me that she lives in a [facility]. I do not see any strong reason to workup her hypercalcemia much further. Even if there is an underlying malignancy there is very little we will do about it. I think it is appropriate to send her back to the [facility] and continue her previous line of care. I would hold all oral calcium and vitamin D supplements from this point forward. She does not need any follow-up with me as outpatient. Exam - Constitutional Vitals: Period Temp Pulse Resp BP Sys/Andrews Pulse Ox Last 24 Hr 98 F-98.7 F 75-121 16-26 140-185/65-77 85-100 Results - Labs CBC & BMP: 11/17/16 01:45 11/18/16 04:33
[2016-11-18] MEDS: NYSTATIN POWDER 15 GM BOTTLE TOP SCH (10:11)
[2016-11-18] MEDS: POTASSIUM CHLORIDE 20 MEQ TABLET PO SCH (10:11)
[2016-11-18] MEDS: ESCITALOPRAM 10 MG TABLET PO SCH (10:11)
[2016-11-18] MEDS: DESITIN 4OZ/NYSTATIN 15 GRAM MIXTURE PASTE TOP SCH (10:11)
[2016-11-18] MEDS: POLYETHYLENE GLYCOL POWDER 17 GM PACK PO SCH (10:11)
[2016-11-18] MEDS: PANTOPRAZOLE 40 MG TABLET PO SCH (10:11)
[2016-11-18] MEDS: ASPIRIN EC 325 MG TABLET PO SCH (10:11)
--- NOTE | 2016-11-18 10:54 | Discharge Summary ---
Hospital Course - Hospital Course Hospital Course: Patient is a previous history of dementia and chronic kidney disease. She was admitted to the hospital with dehydration, acute renal failure, hypokalemia, and hypercalcemia. She was admitted to the intensive care unit where she was treated with intravenous normal saline infusion. She was seen in consultation by nephrology for assistance in management of the electrolyte abnormalities and acute renal failure. She was seen in consultation by oncology for evaluation for possible underlying malignancy. With the above treatment her creatinine decreased to 1.1 and her PIP and her calcium to 9.0. She underwent CT scans of her lung, abdomen, and pelvis with no demonstration of a malignancy. She remains severely disoriented due to her dementia throughout her hospitalization. At the time of her discharge she was stable. Diagnosis - Discharge Diagnosis (1) Hypercalcemia Status: Acute (2) Hypokalemia Status: Acute (3) Encephalopathy acute Status: Chronic (4) Acute kidney injury superimposed on chronic kidney disease Status: Resolved Discharge Plan - Discharge Data Disposition: Disch/Xfer to Snf Condition at Discharge: Stable Discharge Diet: advance to your usual diet Activity: resume usual activities as tolerated - Discharge Medications Continue Levofloxacin Tab [Levaquin Tab] 500 mg PO DAILY Baclofen 10 mg PO BEDTIME Tiotropium Inhalation [Spiriva Handihaler] 18 mcg INH DAILY guaiFENesin/PSEUDOEPH 600-60MG [Mucinex D] 400 mg PO BID PRN PRN Reason: Congestion Glucagon 1 mg IM PRN PRN PRN Reason: Glucose Management Ascorbic Acid [Vitamin C] 500 mg PO BID Ferrous Sulfate 325 mg PO DAILY Aspirin [Ecotrin] 325 mg PO DAILY guaiFENesin/CODEINE [Robitussin AC] 5 ml PO DAILY metHOTREXate sodium [Methotrexate] 25 mg IJ ONCE Melatonin 10 mg PO BEDTIME metOLazone [Zaroxolyn] 1.25 mg PO DAILY ALPRAZolam [Xanax] 0.5 mg PO BID PRN PRN Reason: Anxiety HYDROcodone/ACETAMIN 7.5-325 [[place] 7.5-325] 7.5 mg PO Q6HR Cranberry Conc/C/Bacill Coag [Cranberry Tablet] 424 mg PO DAILY Amitriptyline [Elavil] 25 mg PO BEDTIME Acetaminophen Tab [Tylenol Tab] 650 mg PO Q4H PRN PRN Reason: Fever Escitalopram Oxalate [Lexapro] 5 mg PO DAILY Denosumab [Prolia] 60 mg SUBCUT ONCE Cetirizine Tab [ZyrTEC Tab] 10 mg PO DAILY PRN PRN Reason: cough and congestion predniSONE TAB [PredniSONE] 10 mg PO DAILY Furosemide Tab [Lasix Tab] 20 mg PO BID DIURETIC Levothyroxine Tab [Synthroid Tab] 25 mcg PO SUTUTHSA Multivitamin [Multivitamins] 1 tablet PO DAILY Folic Acid Tab 1 mg PO DAILY Albuterol/Ipratropium Neb [Duoneb] 3 ml RESP TX Q4HR PRN PRN Reason: Shortness Of Breath diphenhydrAMINE CAP [Benadryl Cap] 25 mg PO BEDTIME PRN PRN Reason: Insomnia Mirtazapine [Remeron] 15 mg PO BEDTIME Acetaminophen Tab [Tylenol Tab] 650 mg PO Q4H PRN PRN Reason: Pain Polyethylene Glycol Powder [Miralax] 17 gm PO QOTHER DAY predniSONE TAB [PredniSONE] 20 mg PO DAILY Potassium Chloride Cap/Tab [K Dur] 20 meq PO BID Levothyroxine Tab [Synthroid Tab] 50 mcg PO MOWEFR Discontinued Calcium (Carb)/Vit D 500-200 [Oscal 500 + D] 1 tablet PO BID - Follow Up or Referral - Forms/Instructions Exam - Constitutional Vitals: Period Temp Pulse Resp BP Sys/Andrews Pulse Ox Last 24 Hr 97.1 F-98.5 F 75-121 16-26 140-185/65-82 85-100 Discharge Results Procedures and tests throughout hospitalization: Pending Orders 11/12/16 17:40 PTH-Related Peptide Routine Labs on day of discharge: Labs from last 24 hours 11/18/16 04:33 Sodium 142 Potassium 3.5 Chloride 107 Carbon Dioxide 25 Anion Gap 13.5 BUN 13 Creatinine 1.00 GFR Calculation 59 BUN/Creatinine Ratio 13.00 Glucose 88 Calculated Osmolality 281.1 Calcium 7.9 L Magnesium 1.0 L DS: Provider Date of admission: 11/12/16 14:01 Primary care physician: . No PCP Attending physician on admission: Ariel Edmonds Consults: 11/12/16 15:08 Consult to Dietitian [CONS] Routine Reason for Dietitian: Dietary Consult 11/12/16 16:22 Consult to Wound Care - [place] [CONS] Routine Reason for Wound Care: Other Consult Comment: preventive for buttock and feet 11/12/16 16:34 Consult to Physician [CONS] Routine Comment: hypercalcemia,hypokalemia,acute on ckd Consulting Provider: Charly Lyon When should Consulting Provider be notified: Now Person Notified: Dr. Lyon Date Notified: 11/12/16 Time Notified: 16:52 11/13/16 08:41 Consult to Physician [CONS] Routine Comment: Consulting Provider: 11/13/16 08:43 Consult to Physician [CONS] Routine Comment: Consulting Provider: Yahir Richardson Consult to Specialist Group: Oncology When should Consulting Provider be notified: Now Person Notified: ELLEN Date Notified: 11/14/16 Time Notified: 13:20 11/15/16 12:51 Consult to Physician [CONS] Routine Comment: altered mental status Consulting Provider: Pancho Copeland Consulting Provider Notified: Yes When should Consulting Provider be notified: Now Consult to Specialist Group: Neurology When should Consulting Provider be notified: Now Person Notified: Lula Date Notified: 11/18/16 Time Notified: 10:24 Discharging clinician: Ariel Edmonds
[2016-11-18 11:35] VITALS: BP 145/68
== END 2016-11-18 14:15 | DRG 682 ==
LOC: SUATTDRO 14:01 → N.CC 14:01 → N.4E 11-13 23:56